=== PATIENT | male | born 1960 ===

== ENCOUNTER 2018-12-18 07:59 | Day surgery (SDC) | payer OTHER ==
[~2018-12-18] VITALS: Ht 177.8 cm; Wt 107.8 kg
== END 2018-12-18 09:22 | disposition home or self-care (01) ==
LOC: ORSCSDS 07:59
PROVIDERS: Surgery
PROC: 0DJD8ZZ Inspection of Lower Intestinal Tract, Via Natural or Artificial Opening Endoscopic (ICD-10-PCS; principal; 2018-12-18 09:15)
DX: Z12.11 Encounter for screening for malignant neoplasm of colon (principal); Z72.0 Tobacco use; E66.01 Morbid (severe) obesity due to excess calories; Z68.35 Body mass index [BMI] 35.0-35.9, adult
CPT/HCPCS: J2704; J7120

== ENCOUNTER 2019-04-21 06:06 | Day surgery (SDC) | payer OTHER ==
[~2019-04-21] VITALS: Ht 177.8 cm; Wt 98.0 kg
[~2019-04-21 06:06] MED LIST: ADVIL PO
--- NOTE | 2019-04-21 07:06 | NUR ---
Ambulatory in Day Surgery History, Chart, Medications and Allergies reviewed before start of procedure. Lungs clear T/O to Auscultation. Pre-Op teaching done. Pt verbalizes understanding. Patient confirms NPO status and agrees with scheduled surgery.
--- NOTE | 2019-04-21 09:13 | NUR ---
SUMMARY: PT HAD UNCOMPLICATED POST OP COURSE. NO C/O PAIN OR DISCOMFORT. CAP REFILL TO FINGERS OF RIGHT HAND REMAINED AT 3 SECONDS THROUGH ENTIRE STAY. PLETH GOOD ON SAT MONITOR. PT MARIBEL AT TIMES IN HIGH 40'S. DRESSING REMAINED CLEAN DRY AND INTACT. FINGERS NUMB RELATED TO NERVE BLOCK. REVIEWED DISCHARGE INSTRUCTIONS WITH PATIENT AND , BOTH OF WHOM VERBALIZE UNDERSTANDING OF ALL. PT DRESSED SELF WITH SBA OF . IV DC TIP INTACT AND PT DISCHARGED HOME WITH HANDOUTS/DC PACKET. LEFT VIA WC WITH TO DRIVE HIM.
== END 2019-04-21 23:02 | disposition home or self-care (01) ==
LOC: ORSCMMR 06:06 → ORD 07:30 → ORSCMMR 07:30
PROVIDERS: Orthopaedic Surgery
PROC: 01N50ZZ Release Median Nerve, Open Approach (ICD-10-PCS; principal; 2019-04-21 07:30)
DX: G56.01 Carpal tunnel syndrome, right upper limb (principal); E66.9 Obesity, unspecified; Z68.31 Body mass index [BMI] 31.0-31.9, adult
CPT/HCPCS: J0690; J2250; J2704; J3010; J7120

== ENCOUNTER → 2022-09-05 | Outpatient (CLI) | payer OTHER | END | disposition home or self-care (01) | LOC: LAB 09:28 → LAB SHORT 09:28 | DX: L57.0 Actinic keratosis (principal) | CPT/HCPCS: 88305 ==

== ENCOUNTER 2022-11-22 06:34 | Day surgery (SDC) | payer OTHER ==
[~2022-11-22] VITALS: Ht 180.3 cm; Wt 102.4 kg
[~2022-11-22 06:34] MED LIST changes: +Vitamin B-Comp1 EACH
--- NOTE | 2022-11-22 07:02 | NUR ---
Ambulatory in Day Surgery History, Chart, Medications and Allergies reviewed before start of procedure. Pre-Op teaching done. Pt verbalizes understanding. Patient States Post-Procedure ride home has been arranged.
--- NOTE | 2022-11-22 10:17 | NUR ---
PT ARRIVED TO THE UNIT VERY SLEEPY BUT AROUSABLE TO SPEECH. PT ON RM AIR SINCE ARRIVAL TO PACU W O2 SATS >94%. ECG SHOWING SR 60'S. PT DENIES ANY PAIN OR NAUSEA. PT ABLE TO TURN HIS HEAD W/O PAIN. BP STABLE. PT HAS RECIEVED NO MEDICATIONS OR FLUIDS IN PACU. READY TO TRANSPORT TO [facility] VIA GURNEY.
== END 2022-11-22 22:33 | disposition home or self-care (01) ==
LOC: ORSCMMR 06:34 → ORD 10:00 → ORSCMMR 22:33
PROVIDERS: Surgery
PROC: 0JB40ZX Excision of Right Neck Subcutaneous Tissue and Fascia, Open Approach, Diagnostic (ICD-10-PCS; principal; 2022-11-22 08:00)
PROC: 0JB50ZX Excision of Left Neck Subcutaneous Tissue and Fascia, Open Approach, Diagnostic (ICD-10-PCS; principal; 2022-11-22 08:00)
DX: D17.0 Benign lipomatous neoplasm of skin and subcutaneous tissue of head, face and neck (principal); I10 Essential (primary) hypertension; F17.220 Nicotine dependence, chewing tobacco, uncomplicated
CPT/HCPCS: 88304; A9270; J0690; J1100; J1885; J2250; J2405; J2704; J2795; J3010; J7120